=== PATIENT | female | born 1935 | race Caucasian/White ===

== ENCOUNTER 2016-08-18 12:01 | Emergency (ER) | payer MEDICARE, OTHER ==
[~2016-08-18] VITALS: Ht 162.6 cm; Wt 68.2 kg
[~2016-08-18 12:01] MED LIST: ALLERCLEAR PO; ASCO-294 PO; ASPI-973 PO; CHOL200047 PO; CYA1000I IM; ESTR0.5T PO; ESTR42.52 VG; KTC2C15 TP; LACT1CAP65 PO; LEVO50TA6 PO; METO-272 PO; OMEP20TA24 PO; [UNRECOGNIZED DRUG - OTHER] PO
[2016-08-18 12:07] VITALS: BP 111/64; PULSE 88; RESP 16; O2SAT 95
[2016-08-18 12:54] LABS: BASOPHILS % (AUTO) 0.2 % (0-3); EOSINOPHILS % (AUTO) 0.4 % (0-5); MONOCYTES % (AUTO) 3.8 % (4-12); Mean Corpuscular Hemoglobin 31.6 pg (27.0-35.0); NEUTROPHILS % (AUTO) 93.1 % (40-74); Platelet Count 287 bil/L (150-400)
[2016-08-18] MEDS ORDERED: NITR-66 (13:12)
[2016-08-18] MEDS ORDERED: PRAV20TA2 PO (13:16)
[2016-08-18 13:27] LABS: TROPONIN T < 0.010 ug/L (0.0-0.011)
--- NOTE | 2016-08-18 14:04 | DRSVH ---
PROCEDURE: X-RAY CHEST, TWO VIEWS ([id number]) INDICATIONS: sob/weakness TECHNIQUE: 2 views of the chest were acquired. COMPARISON: None. FINDINGS: Surgical changes and devices: Surgical clips projecting in the right breast. Lungs and pleura: No pleural effusions or pneumothorax. Mild blunting of the costophrenic angles and scattered scarring/interstitial changes.. Mediastinum: Mediastinal contours are normal. Heart size is normal. Bones and chest wall: No suspicious bony abnormalities. Soft tissues appear unremarkable. IMPRESSION: Mild blunting of the costophrenic angles bilaterally is seen the possibility of atelectas is versus trace pleural fluid. Elsewhere, no acute disease Dictated by: Jose Alejandro Kwon M.D. on 08/18/2016 at 14:02 Approved by: Jose Alejandro Kwon M.D. on 08/18/2016 at 14:02
--- NOTE | 2016-08-18 15:31 | ED.REPORT ---
HPI-General Illness Date of Service Aug 18, 2016 ED Provider: Mark Anthony Rosa MD 81 year old female with a hx of PVD on ASA daily presents to the ED due to shaking chills intermittently since 0600 this morning. When she woke up at 0400 she had no symptoms. Pt also reports fatigue and generalized weakness. She also reports SOB which has resolved. Pt denies fever, diaphoresis, CP, cough, sore throat, ear pain, nasal congestion, dysuria and other urinary changes. Pt is currently being treated to prevent UTI at the direction of Dr. Torres, urology. Started a antibiotic yesterday for this. Nursing Notes Stated Complaint: WEAKNESS,TREMBLING,LABORED BREATHING Chief Complaint: General Complaint Nursing Notes Reviewed: Yes ([email or web address], [employer] reconciled) Allergies: Coded Allergies: Sulfa (Sulfonamide Antibiotics) (Unverified Allergy, Severe, RASH, 04/09/16 ) lisinopril (Unverified Allergy, Severe, FACIAL SWELLING, 04/09/16) amlodipine (Verified Allergy, Unknown, hives, 04/09/16) hydrochlorothiazide (Verified Allergy, Unknown, chest pain, 04/09/16) neomycin (Unverified Allergy, Unknown, UNKNOWN, 04/09/16) Scheduled ([S-Htp]) 100 MG PO DAILY ([Allerclear]) 10 MG PO DAILY Ascorbate Calcium (Vitamin C) 500 Mg Tablet 500 MG PO 4Xweekly Aspirin (Aspirin) 81 Mg Tablet 81 MG PO 4Xweekly Cholecalciferol (Vitamin D3) (Vitamin D3) 2,000 Unit Capsule 2,000 UNIT PO DAILY Ciprofloxacin (Ciprofloxacin) 500 Mg Tablet 500 MG PO BID Cyanocobalamin (Cyanocobalamin Injection) 1,000 Mcg/1 Ml Vial 1,000 MCG IM Monthly Estradiol (Estrace) 42.5 Gm Cream.appl 0.1 MG VG Twice weekly Estradiol (Estradiol) 0.5 Mg Tablet 0.5 MG PO 3 times weekly Lactobacillus Acidophilus (Probiotic) 1 Each Capsule 1 EACH PO DAILY Levothyroxine (Levothyroxine) 50 Mcg Tablet 50 MCG PO DAILY Metoprolol Succinate ER (Metoprolol Succinate ER) 50 Mg Tab.er.24h 50 MG PO DAILY Nitrofurantoin Macrocrystal (Macrodantin) 100 Mg Capsule 100 BID Omeprazole Magnesium (Prilosec Otc) 20 Mg Tablet. 20 MG PO DAILY Pravastatin (Pravastatin) 20 Mg Tablet 20 MG PO DAILY Scheduled PRN Ketoconazole (Ketoconazole) 15 Gm Cream..g. 1 APPLIC TP PRN . General Time Seen by MD: 15:25 Chief Complaint Other (Shaking chills) Hx Obtained From: Patient Arrived By: Walk-in Onset Occurred: 1 - 4 hours ago Symptom Duration: Intermittent Severity: Current: No pain currently Associated with: Reports: Shortness of breath, Denies: Fever Pertinent Negative: Relieved by nothing Past Medical History Past Medical History Notes: Echocardiogram February 2016 normal LV, EF 60-65% Nuclear stress test negative April 04 Past Medical History Peripheral vascular disease on aspirin. Plavix stopped secondary to bruising. Diagnosed with diastolic heart failure November 2013 Hypertension GERD UTI's Malignant melanoma of arm s/p excision Past Surgical History Stent in the left external iliac LAURITA/SBO Thoracotomy Bladder suspension Colon resection 1987 Reports: Appendectomy, Cholecystectomy Smoking History Former Smoker (50 year smoking more than 1ppd. Quit 1999. ) Social History Alcohol Use: "Social" Drug Use: Denies drug use Review of Systems Full Review of Systems Constitutional: Reports: Chills, Weakness - generalized, Denies: Fever Ears / Nose / Throat: Denies: Earache bilateral, Nasal congestion, Sore throat Respiratory: Reports: Shortness of breath, Denies: Non-productive cough Cardiovascular: Denies: Chest pain, Edema GI: Denies: Abdominal pain, Diarrhea, Nausea, Vomiting Female: Denies: Dysuria, Hematuria, Urinary urgency Musculoskeletal: Denies: Back pain, Extremity pain Skin: Denies Diaphoresis, Denies Rash Neurologic: Reports: Shaking, Denies: Change LOC Complete sys rev & neg: except as marked. Physical Exam Vital Signs Vital Signs Date Time Temp Pulse Resp B/P Pulse Ox O2 Delivery O2 Flow Rate FiO2 08/18/16 17:27 36.7 76 18 121/55 94 Room Air 08/18/16 12:07 36.4 88 16 111/64 95 Room Air Initial VS: Reviewed, Vital signs normal Head / Eyes: Atraumatic, Normocephalic, PERRL ENT: Mucous membranes moist, Conjunctiva normal, No scleral icterus Respiratory: Breath sounds normal, Clear to auscultation, No respiratory distress Cardiovascular: Regular rate & rhythm, Heart sounds normal, Intact distal pulses Abdomen / GI: Soft, Non-tender Extremities: Vascular intact, Neuro intact, No swelling, No tenderness Skin: Warm, Dry, No cyanosis Neurologic: Alert, Oriented, Nonfocal Psychiatric: Mood/affect normal, Behavior normal, Normal thought content General/Constitutional: Awake, Alert Slightly fatigued but does not look toxic or ill Neck: Atraumatic, Supple, Full range of motion, No adenopathy Interpretation & Diagnostics Interpretation & Diagnostics: Urine culture from 08/13/2016 at the urologist office of Dr. Torres was positive for greater than ten to the fifth Escherichia coli, and 10 to the fifth enterococcus the organ systems reviewed and sensitive, and both organisms were sensitive to ampicillin, ciprofloxacin, levofloxacin, nitrofurantoin. She had a prescription phoned in for Macrobid 100 mg twice a day for 10 days, but started it yesterday 1 dose Lab Results Interpretation Result Diagram: 08/18/16 1241 08/18/16 1241 Test 08/18/16 12:41 08/18/16 15:55 08/18/16 16:10 White Blood Count 12.3th/mm3 (3.8-10.1) Red Blood Count 3.99mil/mm3 (3.90-5.20) Hemoglobin 12.6g/dL (12.0-15.6) Hematocrit 38.3% (35.0-46.0) Mean Corpuscular Volume 96.0fL (81-100) Mean Corpuscular Hemoglobin 31.6pg (27.0-35.0) Mean Corpuscular Hemoglobin Concent 32.9% (32.0-37.0) Red Cell Distribution Width 12.9% (12.3-15.4) Platelet Count 287bil/L (150-400) Neutrophils (%) (Auto) 93.1% (40-74) Lymphocytes (%) (Auto) 2.2% (14-46) Monocytes (%) (Auto) 3.8% (4-12) Eosinophils (%) (Auto) 0.4% (0-5) Basophils (%) (Auto) 0.2% (0-3) Sodium Level 135mEq/L (134-144) Potassium Level 4.7mEq/L (3.5-5.2) Chloride Level 96mEq/L (97-108) Carbon Dioxide Level 22mmol/L (18-29) Blood Urea Nitrogen 17mg/dL (8-27) Creatinine 0.87mg/dL (0.57-1.00) Estimat Glomerular Filtration Rate 89mL/min (>59) Glucose Level 112mg/dL (60-99) Calcium Level 9.1mg/dL (8.5-10.1) Total Bilirubin 1.3mg/dL (0.0-1.2) Aspartate Amino Transf (AST/SGOT) 26U/L (0-50) Alanine Aminotransferase (ALT/SGPT) 18U/L (0-32) Alkaline Phosphatase 73U/L (25-165) Troponin T < 0.010ug/L (0.0-0.011) Pro-B-Type Natriuretic Peptide 1218pg/mL (0-738) Total Protein 7.0g/dL (6.4-8.4) Albumin 4.1g/dL (3.4-5.0) Urine Color Dark yellow (YELLOW) Urine Appearance Clear (CLEAR,HAZY) Urine pH 7.0 (5.0-8.0) Urine Specific Sloan 1.010 (1.003-1.035) Urine Protein Negativemg/dL (NEG,TRACE) Urine Glucose (UA) Negativemg/dL (NEGATIVE) Urine Ketones Negativemg/dL (NEGATIVE) Urine Occult Blood Small (NEGATIVE) Urine Nitrite Negative (NEGATIVE) Urine Bilirubin Negative (NEGATIVE) Urine Urobilinogen 2.0mg/dL (NORMAL) Urine Leukocyte Esterase Negative (NEGATIVE) Urine RBC 0-2/hpf (0-2) Urine WBC 0-5/hpf (0-5) Urine Epithelial Cells None/hpf (NONE-MOD) Urine Crystals None seen (NONE SEEN) Urine Bacteria Few/hpf (NONE-FEW) Urine Hyaline Casts None/lpf (NONE) Urine Granular Casts None seen (NONE SEEN) Urine Waxy Casts None seen (NONE SEEN) Urine Red Blood Cell Casts None seen (NONE SEEN) Urine White Blood Cell Casts None seen (NONE SEEN) Urine Mucus None seen (None Seen) Urine Trichomonas None seen (NONE SEEN) Urine Yeast None (NONE SEEN) Urinalysis Comment None Urine Culture Reflexed Not indicated Lactic Acid Level 1.7mmol/L (0.4-2.0) Lab Results Interpretation: CBC positive leukocytosis CMP normal for marginally elevated bilirubin Troponin negative ProBNP elevated General Lab Results Interp 1: Labs reviewed ECG Interpretation ECG Interpretation: Improved from Apr 09, 2016 Time: 13:46 Interpreted by: ED physician Normal ECG Interpretation: Normal rate (77), Normal sinus rhythm, No acute ischemic changes X-Ray Chest Interpretation Chest Xray Interpretation: IMPRESSION: Mild blunting of the costophrenic angles bilaterally is seen the possibility of atelectasis versus trace pleural fluid. Elsewhere, no acute disease Dictated by: Jose Alejandro Kwon M.D. on 08/18/2016 at 14:02 View: AP & lat Interpretation / Wet Read by: Interpret - Radiologist Re-Eval/Medical Decision Med Decision/Clinical Course This is an 81-year-old female who presents complaining of rigors and fatigue. I am shaking chills and some weakness-but does not think she had a monica fever. Aside from being tired she has no other complaints in the department. He denies cough, shortness breath, abdominal pain, diarrhea, she denies dysuria- however she was just diagnosed with a urine culture on of last week with positive Escherichia coli and positive enterococcus at the urology office. She received a phone call on Thursday that they will call in a prescription for Antibiotics - Macrobid, and she took her first dose of that antibiotic yesterday. Today she developed the rigors. She appears mildly tired-but she does not appear toxic or acutely ill. She has normal vitals and was not currently febrile. Lungs are clear, abdomen soft nontender, she has no marked findings on physical exam. Lab work is no peripheral leukocytosis, urine is normal here-but I remain suspicious given the positive cultures just a few days ago in the absence of anything but a single dose of antibiotics in the interim. Chest x-ray reveals trace blunting, nonspecific, and the patient has no respiratory symptoms, no respiratory findings a source remains most likely. The patient received an IV dose of ceftriaxone, but is sexually able obtain the culture results and the and the Escherichia coli and enterococcus are both sensitive both Macrodantin and other fluoroquinolones. Given Macrodantin works well for UTI but with the Rigorrs suggesting potential bacteremia, the plan is to change to the fluoroquinolone at this stage. Fluoroquinolone so the only one twitch both organisms were clearly susceptible outside of the Macrobid. Patient's being discharged. She feels improved. Routine precautions were reviewed. Source of Hx: Old records Time of Eval: 17:00 Patient Status: Condition improved Re-Evaluation/Progress Note: Updated pt of labs, ECG and imaging results. Discussed plan for discharge and follow up. All questions addressed. Differential Diagnosis: Negative: Abdominal pain, Acute coronary syndrome, Allergies, Bronchitis, acute, Diabetes mellitus, Malingering, Neutropenia, Pneumonia, Syncope Counseled Regarding: Diagnosis, Lab results, Need for follow-up, When/why to return to ED Discharge & Departure Primary Impression: Rigors Additional Impressions: Escherichia coli urinary tract infection Enterococcus UTI Disposition: Home Discharge Condition All VS Reviewed: Yes Condition: Improved 1. The shaking chills you described earlier are likely "rigors", which are usually indicative of the onset of an infection. 2. Your urine culture from last week was positive for the bacteria "E coli" and "enteroccocus" - and these are most likely the source of the infection given you just started the antibiotics yesterday. At this point, we recommend using stronger antibiotics - you received an injection of the antibiotic ceftriaxone and an oral dose of levofloxacin in the ED. 3. Start the antibiotic ciprofloxacin 500mg twice a day for 10 days starting tomorrow. You will take this INSTEAD of the macrodantin/macrobid that you started yesterday. 4. Rest. 5. Drink extra fluids. 6. You may still have some chills or even a fever tonight, but these are expected to be resolving by tomorrow afternoon (24 hours after the antibiotics we have started). 7. We stuart blood cultures today - we will call you if anything "grows" in the blood samples. 8. Return again if new or worsening symptoms. Referrals: Sugey Chaudhry MD (PCP) Emiliano Torres MD Scribe Attestation Portions of this note were transcribed by Thania Pepper. I, (Dr. Rosa) personally performed the history, physical exam and medical decision-making; I reviewed and confirmed the accuracy of the information in the transcribed note. Signed by: Thania Pepper. 08/18/2016, [id number] copies to: Emiliano Torres MD; Sugey Chaudhry MD, Matthew F MD Aug 18, 2016 15:31 Thania Pepper Aug 18, 2016 15:43
[2016-08-18] MEDS ORDERED: 0.9% Sodium Chloride 500 ML IV ONE (15:45)
[2016-08-18] MEDS ORDERED: cefTRIAXone Inj 2,000 MG in IV Premix 1 EACH IV ONE (15:45)
[2016-08-18 16:17] LABS: APPEARANCE,URINE CLEAR (CLEAR,HAZY); COLOR,URINE DARK YELLOW (YELLOW); OCCULT BLOOD,URINE SMALL (NEGATIVE)
[2016-08-18] MEDS ORDERED: levoFLOXacin 500 mg Tablet PO ONE (16:25)
[2016-08-18] MEDS ORDERED: CIPR-198 PO (16:58)
[2016-08-18 17:27] VITALS: BP 121/55; PULSE 76; RESP 18; O2SAT 94
== END 2016-08-18 17:29 | disposition home or self-care (01) ==
LOC: SED 12:01
DX: R68.89 Other general symptoms and signs (principal); N39.0 Urinary tract infection, site not specified; B96.20 Unspecified Escherichia coli [E. coli] as the cause of diseases classified elsewhere; B95.2 Enterococcus as the cause of diseases classified elsewhere; R06.02 Shortness of breath; I10 Essential (primary) hypertension; K21.9 Gastro-esophageal reflux disease without esophagitis; Z87.891 Personal history of nicotine dependence; Z79.82 Long term (current) use of aspirin; Z88.2 Allergy status to sulfonamides; Z88.8 Allergy status to other drugs, medicaments and biological substances; Z88.1 Allergy status to other antibiotic agents
CPT/HCPCS: 36415; 71020; 80053; 81000; 83605; 83880; 84484; 85025; 87040; 93005; 96365; 99285; J0696; J7040

== ENCOUNTER 2017-01-09 14:24 | Day surgery (SDC) | payer MEDICARE, OTHER ==
[~2017-01-09] VITALS: Ht 162.6 cm; Wt 68.0 kg
[~2017-01-09 14:24] MED LIST changes: +CIPR-198 PO; +Ertapenem Inj 1,000 MG in 0.9% Sodium Chloride 50 ML IV PRN; +NITR-66; +PRAV20TA2 PO
[2017-01-09 14:41] VITALS: BP 147/69; PULSE 62; RESP 16; O2SAT 96
--- NOTE | 2017-01-09 15:01 | NUR ---
ABO Pt tolerated ABO well, VSS, Double lumen PICC just placed by IVT for HH purposes. EDU for PICC and admin teaching.
== END 2017-01-09 23:59 ==
LOC: MOCO 14:24
PROVIDERS: ATTEND Specialist
DX: N39.0 Urinary tract infection, site not specified (principal)
CPT/HCPCS: 96365; J1335